=== PATIENT | male | born 1995 | race Caucasian/White ===

== ENCOUNTER 2020-04-09 22:07 | Emergency (ER) | payer MEDICAID, SELFPAY ==
[2020-04-09 22:12] VITALS: BP 104/63; PULSE 97; RESP 16; TEMP 37.3; O2SAT 100; BMI 22.6
--- NOTE | 2020-04-09 22:35 | W.ED.SKABFB ---
HPI - Skin/Abscess/Foreign Bdy General: Chief complaint: General Medical Stated complaint: painful lumps in face and head Time Seen by Provider: 04/09/20 22:23 Source: patient Mode of arrival: ambulatory Limitations: no limitations History of Present Illness: HPI narrative: Patient is a 24-year-old male who presents to ED today with complaints of skin lesions to his chin that he noticed approximately 2 weeks ago. Patient states since then he has noticed a couple of lumps underneath his right chin and left neck. Patient denies history of staph or MRSA. He has not noticed any drainage from the lesions. No fever/chills/body aches. No other systemic symptoms. Normally shaves face but states he has not recently because of the lesions. MD complaint: lesion Onset (ago): week(s) Tetanus up to date: yes Location: face Severity: mild Relieving factors: none Exacerbating factors: none Context: none Associated symptoms: Reports no associated symptoms; Deny chills, fever(s), nausea or vomiting Treatments prior to arrival: none Review of Systems Const: Denies: fever(s), chills, body aches, change in appetite, change in weight, fatigue or malaise ENMT: Reports: other (denies dysphagia ); Denies: throat pain, enlarged tonsils, odynophagia or oral sores GI: Denies: nausea, vomiting or dysphagia Musc: Denies: neck pain, back pain, extremity pain, extremity swelling, joint pain or joint swelling Skin/Breast: Reports: sores (chin) Neuro: Denies: headache(s), numbness in extremities, weakness in extremities or sensory changes PFS ED PFSH: Social History Smoking and tobacco status: current every day smoker Physical Exam Const: COMMON NORMALS: no acute distress, average body habitus, patient oriented x3, no limitations, healthy appearing, alert and well nourished Neck/C-Spine: COMMON NORMALS: full ROM and no meningeal signs Lymph: OTHER: pt has submental, right sided submandibular, and one left superficial cervical lymph node swelling present Neuro: COMMON NORMALS: patient oriented x3 SENSORIUM/ORIENTATION: Yes alert MENINGEAL SIGNS: Yes no meningeal signs Skin: OTHER: pt has two scabbed areas approximately 3-4 mm to chin with crusting and surrounding erythema Course Vital Signs: Vital signs: Vital Signs Temperature 99.1 F 04/09/20 22:12 Pulse Rate 97 04/09/20 22:12 Respiratory Rate 16 04/09/20 22:12 Blood Pressure 104/63 04/09/20 22:12 Pulse Oximetry 100 04/09/20 22:12 MDM - Skin/Abscess/Foreign Bdy MDM Narrative: Medical decision making narrative: pt with probable staph to chin with reactive lymphadenopathy; will place on oral bactrim and give mupirocin ointment; he needs to seek re-evaluation if lesions/lymph nodes do not improve despite therapy Discharge Plan Discharge Patient Disposition: Home, Self-Care Clinical Impression: Staph skin infection, Reactive lymphadenopathy Condition: Stable Prescriptions: New mupirocin 2 % ointment 1 applic TOPICAL BID Qty: 15 RF: 0 Bactrim DS 800-160 mg tablet 1 tab PO BID 7 Days Qty: 14 RF: 0 Discharge Orders: Discharge Order (Routine); Ordered 04/09/20 Ordered By: Seda Luciano Patient Instructions: Lymphadenopathy (ED), Staphylococcus Aureus Infection Activity Restrictions/Additional Instructions: Avoid picking. Avoid shaving until all lesions cleared (use new razor). May use warm compresses to help facilitate drainage. Seek re-evaluation if area continues to worsen or fails to improve after antibiotics. Coding Level of Care Code ED One Piece Expansion Maker Hand for Elizabeth Fwsawyer Exam Expanded Problem Focused
== END 2020-04-09 22:59 | disposition home or self-care (01) ==
LOC: ER 22:42
PROVIDERS: Emergency Provider Physician Assistant
DX: L08.89 Other specified local infections of the skin and subcutaneous tissue (principal); R59.1 Generalized enlarged lymph nodes; F17.210 Nicotine dependence, cigarettes, uncomplicated
CPT/HCPCS: 12345; 99281; 99282

== ENCOUNTER 2020-05-07 16:02 | Emergency (ER) | payer MEDICAID, SELFPAY ==
[2020-05-07 16:12] VITALS: BP 148/80; PULSE 87; RESP 16; TEMP 36.9; O2SAT 100; BMI 21.9
--- NOTE | 2020-05-07 18:10 | CTR_ITS ---
PROCEDURE INFORMATION: Exam: CT Head Without Contrast Exam date and time: 05/07/2020 7:05 PM Age: 24 years old Clinical indication: Pain; Headache; Additional info: Intractable headache TECHNIQUE: Imaging protocol: Computed tomography of the head without contrast. Radiation optimization: All CT scans at this facility use at least one of these dose optimization techniques: automated exposure control; mA and/or kV adjustment per patient size (includes targeted exams where dose is matched to clinical indication); or iterative reconstruction. COMPARISON: CT head wo con* [id number] 05/20/2016 10:02 AM RADIATION DOSE METRICS: Total DLP (mGy-cm): 807.31 FINDINGS: Brain: No visible evidence of active or acute intracranial pathologic process, trauma, or hemorrhage. Normal apodaca-white differentiation. No visible evidence of focal or generalized edema or demyelination. Ventricles: Normal. No ventriculomegaly. Bones/joints: Unremarkable. No acute fracture. Sinuses: Visualized sinuses are unremarkable. No fluid levels. Mastoid air cells: Visualized mastoid air cells are well aerated. Soft tissues: Small 1 cm subcutaneous nodule left occiput soft tissues potential small soft tissue fibroma or complex sebaceous cyst. CT/CT head wo con* [id number] IMPRESSION: No visible evidence of active or acute intracranial pathologic process. Radiation Dose CTDIVOL = (mGy): DLP = 807.31 (mGy-cm)
[2020-05-07 18:44] LABS: Basophils # 0.1 10^3/uL (0.0-0.1); Basophils % 0.7 %; Eosinophils # 0.2 10^3/uL (0.0-0.8); Eosinophils % 2.7 %; Hematocrit 40.3 % (42.0-52.0); Lymphocytes # 1.8 10^3/uL (0.8-4.8); Lymphocytes % 25.3 %; Mean Corpuscular HGB Conc 32.3 g/dL (30.0-36.0); Mean Corpuscular Volume 89.8 fL (80-94); Mean Platelet Volume 8.9 fL (7.4-10.4); Monocytes % 13.6 %; Neutrophils # 4.03 10^3/uL (1.8-7.7); Neutrophils % 57.3 %; Nucleated Red Blood Cells % 0 %; Platelet Count 333 10^3/cmm (130-400); Red Blood Count 4.49 10^6/uL (4.1-5.3); Red Cell Distribution Width 12.1 % (12.1-15.1)
[2020-05-07 18:54] LABS: INR 0.99 (0.8-1.2)
[2020-05-07 19:00] LABS: Alanine Aminotransferase 40 U/L (0-41); Albumin Level 3.9 g/dL (3.5-5.2); Alkaline Phosphatase 244 IU/L (40-130); Anion Gap 13.6 (5-19); Aspartate Amino Transferase 19 U/L (0-40); Blood Urea Nitrogen 10 mg/dL (6-20); Calcium 9.2 mg/dL (8.5-10.5); Carbon Dioxide 28 mmol/L (22-29); Chloride 99 mmol/L (98-107); Globulin 3.7 g/dL (1.3-4.6); Glomerular Filtration Rate 136.3 mL/min (90-130); Glucose 77 mg/dL (65-115); Osmolality Calculated 279 mOsm/kg (285-295); Potassium 3.6 mmol/L (3.5-5.1); Sodium 137 mmol/L (136-145); Total Bilirubin 0.3 mg/dL (0.15-1.2); Total Protein 7.6 g/dL (6.6-8.7)
[2020-05-07] MEDS: diphenhydrAMINE 50 mg/mL SDV 1mL 25 MG IVP (19:07)
[2020-05-07] MEDS: metoclopramide 5 mg/mL SDV 2 mL 10 MG IVP (19:08)
--- NOTE | 2020-05-07 19:34 | ED_ITS ---
HPI - Headache General: Chief Complaint: Headache Stated Complaint: sent by dotor/possible brain bleed Time Seen by Provider: 05/07/20 18:07 Source: patient Mode of arrival: ambulatory Limitations: no limitations History of Present Illness: HPI Narrative: Mr. Grullon is a nice 24-year-old male who comes in complaining of right-sided headache. He describes the pain as throbbing in nature. The pain began 3 weeks ago and is constant. He states he woke up with a headache and it has not intensified over the past 3 weeks. He denies any photophobia, phonophobia, nausea or vomiting, fevers or chills, neck pain or stiffness, or any other neurologic complaints. Patient denies any other issues but after he had had this headache for the past 3 weeks he was asked to come to the ER by Dr. Pyle for a CT of the head. Patient denies any other complaints or concerns. Associated symptoms: Deny chest pain, confusion, diaphoresis, fever(s), lightheadedness, malaise, nausea, pre-syncope, rash, syncope or vomiting Review of Systems Const: Denies: fever(s), chills, body aches, fatigue, malaise or diaphoresis Eyes: Denies: change in vision, blurry vision, blind spots, photophobia, eye discharge or eye redness ENMT: Denies: throat pain, odynophagia, hoarseness, swelling of lips/tongue, oral sores, ear or mastoid pain, ear discharge, change in hearing or nasal discharge Card: Denies: chest pain, palpitations, irregular heart rhythm, edema, lightheadedness, syncope, pre-syncope, dyspnea on exertion or orthopnea Resp: Denies: dyspnea, productive cough, non-productive cough, wheezing, hemoptysis or chest congestion GI: Denies: abdominal pain, nausea, vomiting, hematemesis, coffee ground emesis, heartburn, diarrhea, constipation, GI cramping, hematochezia or melena : Denies: flank pain, dysuria, urinary frequency, urinary urgency or hematuria Musc: Denies: neck pain, back pain, extremity pain, extremity swelling, joint pain, joint swelling, joint redness, joint warmth or joint stiffness Skin/Breast: Denies: rash, pruritus, erythema, skin tenderness or jaundice Neuro: Reports: headache(s); Denies: numbness in extremities, weakness in extremities, sensory changes, lack of coordination, difficulty walking, dizziness, vertigo, confusion, Slurred speech present or seizure-like activity Juan/Lymph: Denies: easy bruising, easy bleeding, petechiae, purpura or enlarged lymph nodes All/Imm: Denies: urticaria, throat swelling, tongue swelling, facial swelling or acute wheezing PFSH ED PFSH: Medical History (Updated 05/07/20 @ 21:17 by Veronica Alfaro) No pertinent past medical history Surgical History (Updated 05/07/20 @ 19:40 by Veronica Alfaro) No pertinent past surgical history Social History Smoking and tobacco status: current every day smoker Physical Exam Const: COMMON NORMALS: no acute distress, patient oriented x3, no limitations, healthy appearing and well nourished GENERAL APPEARANCE: cooperative, well kempt and well developed HENMT: COMMON NORMALS: normocephalic, atraumatic, external ears normal, EAC's normal and Normal external nose present HEAD & SCALP: normal to inspection, normocephalic and atraumatic FACE & SINUS: normal facial exam and face symmetric NOSE: Normal external nose present and Normal nares present EXTERNAL EAR: Yes external ears normal EXTERNAL AUDITORY CANAL: EAC's normal MOUTH: Normal oral and palatal mucosa present, lip normal and tongue normal Eye: COMMON NORMALS: Equal, round and reactive pupils present and conjunctivae normal GENERAL EYE: appearance normal, both eyes and all related structures ALIGNMENT: Yes alignment normal PERIORBITAL: periorbital findings normal EYELID: eyelids normal CONJUNCTIVA: Yes conjunctivae normal SCLERA: sclerae normal PUPIL: Yes Equal, round and reactive pupils present Neck/C-Spine: COMMON NORMALS: full ROM, no lymphadenopathy, supple, no meningeal signs and no JVD GENERAL: Yes normal visual inspection and Yes trachea midline Chest: COMMONS NORMALS: normal inspection of the chest and normal palpation of entire chest wall Resp: COMMON NORMALS: normal respiratory effort, No retractions and No use of accessory muscles EFFORT & INSPECTION: Yes able to speak in complete sentences and Yes symmetric chest movement AUSCULTATION: no crackles, no rales, no rhonchi and no wheezes Cardio: COMMON NORMALS: no JVD, regular rate, regular rhythm, S1 normal heart sound present and S2 normal heart sound present RATE: regular rate RHYTHM: regular rhythm HEART SOUNDS: S1 normal heart sound present, S2 normal heart sound present, no click, no gallops, no murmurs, no rubs and abnormal split S2 GI: COMMON NORMALS: Soft to palpation and No hepatosplenomegaly present PALPATION: Yes Soft to palpation, No Tenderness to palpation present (GI), No Guarding due to palpation present (GI), No Rigid due to palpation, Yes No hepatosplenomegaly present, No Hernia present, No Palpable mass present and No Pulsatile mass present : COMMON NORMALS: Yes no CVA tenderness BLADDER/KIDNEY EXAM: Yes no CVA tenderness Back/Pelvis: COMMON NORMALS: no CVA tenderness, thoracic and lumbar spine normal to inspection, no thoracic nor lumbar tenderness and thoraco-lumbar ROM normal Extremity: COMMON NORMALS: normal to inspection, full ROM, capillary refill normal, no joint enlargement, no clubbing, cyanosis or edema and no calf tenderness Neuro: COMMON NORMALS: patient oriented x3, CN's II-XII intact bilaterally, moves all extremities, no focal motor deficits and no sensory deficits noted MENINGEAL SIGNS: Yes no meningeal signs SPEECH: speech normal Psych: COMMON NORMALS: mental status grossly normal, Normal thought process present, cooperative, normal affect, speech normal and activity/motor behavior normal APPEARANCE: Yes well kempt SPEECH: Yes normal speech THOUGHT PROCESS: Normal thought process present Skin: COMMON NORMALS: no rashes or lesions noted, turgor normal, no jaundice, no petechiae and no mottling GENERAL SKIN EXAM: no rashes or lesions noted and turgor normal Course Vital Signs: Vital signs: Vital Signs Temperature 97.9 F 05/07/20 21:32 Pulse Rate 72 05/07/20 21:32 Respiratory Rate 16 05/07/20 21:32 Blood Pressure 108/76 05/07/20 21:32 Pulse Oximetry 98 05/07/20 20:16 MDM - Headache MDM Narrative: Medical decision making narrative: Mr. Grullon is a 24-year-old male who comes in with an intractable headache for 3 weeks. He has had no fever, no neck pain or stiffness, he has no other complaints. On exam he had no temporal artery nodularity and he had no visual symptoms. I did review the case in full with Dr. Light who states the patient is the wrong age and knows he does have bad teeth that she thinks is elevated sed rate is likely secondary to this. I did recommend and offered to do a spinal tap to definitively rule out meningitis or some type of strange vasculitis but the patient adamantly refused. He had complete and total pain relief with the medications given him here for a migraine cocktail although his headache did not sound entirely like a migraine. I could not get a hold of Dr. Pyle but I will have case management arrange follow-up for soon as possible Dr. Pyle can decide if he would like the patient to have a temporal artery biopsy or pursue the work-up further. Dr. Light again did not think the patient was the right age but I will cover the patient temporarily and Dr. Pyle can decide if he wants the patient to be worked up definitively. The patient did have overall poor dentition but this was diffusely. There is no sign of dental abscess and the sinuses were clear on CT. Lab Data: Attestation: I reviewed the patient's lab results. Labs: Lab Results 05/07/20 05/07/20 05/07/20 Range/Units 18:17 18:17 18:17 WBC 7.0 (4.0-10.0) 10^3/ uL RBC 4.49 (4.1-5.3) 10^6/u L Hgb 13.0 (11.7-16.6) g/dL Hct 40.3 L (42.0-52.0) % MCV 89.8 (80-94) fL MCH 29.0 (28.0-34.0) pg MCHC 32.3 (30.0-36.0) g/dL RDW 12.1 (12.1-15.1) % Plt Count 333 (130-400) 10^3/c mm MPV 8.9 (7.4-10.4) fL Neut % (Auto) 57.3 % Lymph % (Auto) 25.3 % [place] % (Auto) 13.6 % Eos % (Auto) 2.7 % Baso % (Auto) 0.7 % Neut # (Auto) 4.03 (1.8-7.7) 10^3/u L Lymph # (Auto) 1.8 (0.8-4.8) 10^3/u L [place] # (Auto) 1.0 H (0.2-0.9) 10^3/u L Eos # (Auto) 0.2 (0.0-0.8) 10^3/u L Baso # (Auto) 0.1 (0.0-0.1) 10^3/u L Nucleated RBC % (a uto) 0 % Nucleated RBCs # 0.0 /100WBC ESR (0-10) mm/hr PT 13.40 H (10.5-13.3) SECO NDS INR 0.99 (0.8-1.2) Sodium 137 (136-145) mmol/L Potassium 3.6 (3.5-5.1) mmol/L Chloride 99 (98-107) mmol/L Carbon Dioxide 28 (22-29) mmol/L Anion Gap 13.6 (5-19) BUN 10 (6-20) mg/dL Creatinine 0.7 (0.7-1.2) mg/dL GFR Calculation 136.3 H (90-130) mL/min Glucose 77 (65-115) mg/dL Calculated Osmolal ity 279 L (285-295) mOsm/k g Calcium 9.2 (8.5-10.5) mg/dL Total Bilirubin 0.3 (0.15-1.2) mg/dL AST 19 (0-40) U/L ALT 40 (0-41) U/L Alkaline Phosphata se 244 H (40-130) IU/L Total Protein 7.6 (6.6-8.7) g/dL Albumin 3.9 (3.5-5.2) g/dL Globulin 3.7 (1.3-4.6) g/dL 05/07/20 Range/Units 18:17 WBC (4.0-10.0) 10^3/ uL RBC (4.1-5.3) 10^6/u L Hgb (11.7-16.6) g/dL Hct (42.0-52.0) % MCV (80-94) fL MCH (28.0-34.0) pg MCHC (30.0-36.0) g/dL RDW (12.1-15.1) % Plt Count (130-400) 10^3/c mm MPV (7.4-10.4) fL Neut % (Auto) % Lymph % (Auto) % [place] % (Auto) % Eos % (Auto) % Baso % (Auto) % Neut # (Auto) (1.8-7.7) 10^3/u L Lymph # (Auto) (0.8-4.8) 10^3/u L [place] # (Auto) (0.2-0.9) 10^3/u L Eos # (Auto) (0.0-0.8) 10^3/u L Baso # (Auto) (0.0-0.1) 10^3/u L Nucleated RBC % (a uto) % Nucleated RBCs # /100WBC ESR 89 H (0-10) mm/hr PT (10.5-13.3) SECO NDS INR (0.8-1.2) Sodium (136-145) mmol/L Potassium (3.5-5.1) mmol/L Chloride (98-107) mmol/L Carbon Dioxide (22-29) mmol/L Anion Gap (5-19) BUN (6-20) mg/dL Creatinine (0.7-1.2) mg/dL GFR Calculation (90-130) mL/min Glucose (65-115) mg/dL Calculated Osmolal ity (285-295) mOsm/k g Calcium (8.5-10.5) mg/dL Total Bilirubin (0.15-1.2) mg/dL AST (0-40) U/L ALT (0-41) U/L Alkaline Phosphata se (40-130) IU/L Total Protein (6.6-8.7) g/dL Albumin (3.5-5.2) g/dL Globulin (1.3-4.6) g/dL Imaging Data^: CT Head: Radiologist's impression: [address] [address] [address] Scan Report Signed Patient: Earline Grullon Unit #: [id number] : 1995 Age/Sex: 24 / M ADM Date: 05/07/20 Loc: ER Room/Bed: Attending Dr: Ordering Provider/Ordering MD: Veronica Alfaro DO Date of Service: 05/07/20 Procedure(s): CT head wo con* [id number] Accession Number(s): [id number] Report Number: [id number] PROCEDURE INFORMATION: Exam: CT Head Without Contrast Exam date and time: 05/07/2020 7:05 PM Age: 24 years old Clinical indication: Pain; Headache; Additional info: Intractable headache TECHNIQUE: Imaging protocol: Computed tomography of the head without contrast. Radiation optimization: All CT scans at this facility use at least one of these dose optimization techniques: automated exposure control; mA and/or kV adjustment per patient size (includes targeted exams where dose is matched to clinical indication); or iterative reconstruction. COMPARISON: CT head wo con* [id number] 05/20/2016 10:02 AM RADIATION DOSE METRICS: Total DLP (mGy-cm): 807.31 FINDINGS: Brain: No visible evidence of active or acute intracranial pathologic process, trauma, or hemorrhage. Normal apodaca-white differentiation. No visible evidence of focal or generalized edema or demyelination. Ventricles: Normal. No ventriculomegaly. Bones/joints: Unremarkable. No acute fracture. Sinuses: Visualized sinuses are unremarkable. No fluid levels. Mastoid air cells: Visualized mastoid air cells are well aerated. Soft tissues: Small 1 cm subcutaneous nodule left occiput soft tissues potential small soft tissue fibroma or complex sebaceous cyst. CT/CT head wo con* [id number] IMPRESSION: No visible evidence of active or acute intracranial pathologic process. Radiation Dose CTDIVOL = (mGy): DLP = 807.31 (mGy-cm) Dictated By: Evan Abreu Signed By: Evan Abreu Signed Date/Time: 05/07/201932 DD/ 31 Discharge Plan Discharge Patient Disposition: Home, Self-Care Clinical Impression: Headache Qualifiers: Headache type: unspecified Headache chronicity pattern: chronic headache Intractability: not intractable Qualified Code(s): R51 - Headache Condition: Stable Prescriptions: New prednisone 10 mg tablet 20 mg PO TID 5 Days Qty: 30 RF: 0 Zofran 4 mg tablet 4 mg PO Q6H PRN (Reason: nausea and vomiting) Qty: 20 RF: 0 Augmentin 875-125 mg tablet 1 tab PO BID 10 Days Qty: 20 RF: 0 Discharge Orders: Discharge Order (Routine); Ordered 05/07/20 Ordered By: Veronica Alfaro Referrals: Gilbert Pyle MD [Hospitalist] - 1-3 days (Be certain to follow-up with Dr. Cruz as soon as possible to see if he would like you to undergo further steroid therapy or work-up for your elevated sedimentation rate.) Discharge Diet: Usual diet Discharge Activity: Increase activity as tolerated Patient Instructions: Acute Headache (ED) Activity Restrictions/Additional Instructions: Please return to the ER immediately for any of the signs or symptoms listed on your discharge instruction sheets, worsening/changing of your symptoms, you are not getting better as quickly as expected, or for ANY other cause or concerns. A definitive cause of your headache has not been determined. You need further testing including evaluation for possible giant cell/temporal arteriolitis. Take the steroids as I have directed and be certain to get a hold of Dr. Stein to see if he would like you to continue this. Take the antibiotics as I have prescribed. Return to the ER if your headache returns, you began to vomit or you have any other concerns. Discharge Date/Time: 05/07/20 21:34 Coding Level of Care Code ED Etymology Professor for Chg Fwd Exam Comprehensive
[2020-05-07] MEDS: sodium chloride 0.9% 1,000 ML 999 ML IV (19:42)
[2020-05-07 20:16] VITALS: BP 106/58; PULSE 72; RESP 16; O2SAT 98
[2020-05-07 20:59] LABS: Erythrocyte Sedimentation Rate 89 mm/hr (0-10)
[2020-05-07] MEDS: predniSONE 20 mg Tablet 60 MG PO (21:27)
[2020-05-07] MEDS: amoxicillin-clav 875-125 mg Tablet 1 TAB PO (21:27)
[2020-05-07 21:32] VITALS: BP 108/76; PULSE 72; RESP 16; TEMP 36.6
--- NOTE | 2020-05-11 11:56 | DCPLANNER ---
Dr. Alfaro asked [employer] to check if patient has a follow up appointment for patient with primary care. ecommerce merchandising manager called patient, asked if [employer] could schedule a follow up appointment for patient with [employer], Manisha Oquendo. Patient stated that would be fine, [employer] called the office of CL[employer] CAL[employer]ER, Manisha Oquendo, spoke with Amalia, a follow up appointment was scheduled for Tuesday, May 12, 2020 at 9:00 with Manisha, [employer] called patient with appointment information. Patient stated that he would attend the appointment.
--- NOTE | 2020-05-14 12:36 | DCPLANNER ---
Patient did not attend follow up appointment with Manisha Oquendo.
== END 2020-05-07 21:34 | disposition home or self-care (01) ==
PROVIDERS: Nurse Practitioner Family; Emergency Provider Emergency Medicine
DX: R51 Headache (principal); F17.210 Nicotine dependence, cigarettes, uncomplicated
CPT/HCPCS: 12345; 70450; 80053; 85025; 85610; 85651; 86140; 96361; 96374; 96375; 99282; 99283; J0131; J1200; J2765; J7030; J7512

== ENCOUNTER → 2021-05-27 09:51 | Outpatient (BNVA) | payer BC, SELFPAY | PROVIDERS: Visit Provider Nurse Practitioner Family | DX: Z20.822 Contact with and (suspected) exposure to COVID-19 (principal) | CPT/HCPCS: 87635 ==

== ENCOUNTER 2021-08-12 08:41 | Emergency (ER) | payer BC, MEDICAID, SELFPAY ==
[2021-08-12 08:46] VITALS: BP 125/75; PULSE 100; RESP 15; TEMP 36.7; O2SAT 100; BMI 24.2
--- NOTE | 2021-08-12 08:46 | W.ED.UPPEXIN ---
HPI - Extremity Injury (Upper) General: Chief Complaint: Extremity Injury, Upper Stated Complaint: Injury to Left Hand/Fingers Time Seen by Provider: 08/12/21 08:45 History of Present Illness: HPI narrative: Mr. Grullon is a 25-year-old gentleman without significant past medical history presents emergency department due to hand injury. He reports that he was leaving his house when his dog jumped behind him on the door slamming his left hand in the door. Immediately had pain which he describes as throbbing. Moderate to severe in intensity. Worse with movement. He additionally endorses mild subjective numbness in the fifth digit. Otherwise denies changes in health. No other specific injuries, exacerbating, or relieving factors identified. Review of Systems Narrative: CONSTITUTIONAL: denies fever CARDIOVASCULAR - denies chest pain RESPIRATORY - denies shortness of breath MUSCULOSKELETAL- see hpi SKIN - denies rashes or new changed skin lesions NEUROLOGIC - se hpi [facility] ED PFSH: Medical History (Updated 08/12/21 @ 09:19 by José Miguel Buck MD) No pertinent past medical history Surgical History No pertinent past surgical history Social History Smoking and tobacco status: current every day smoker Alcohol intake: never Physical Exam Narrative: EXAM NARRATIVE: GENERAL/CONSTITUTIONAL - well-appearing. uncomfortable due to pain CARDIOVASCULAR - regular rate and rhythm. Peripheral pulses 2+ and equal RESPIRATORY -clear to auscultation bilaterally. MSK - left hand: Fingers held in neutral position, pain limits range of motion. SKIN - Warm, Dry Course ED course: - Patient was seen and evaluated by me at bedside -Vital signs obtained - Initial evaluation notable for exam as noted above, hand pain with limited range of motion secondary to pain, no lacerations or abrasions identified. - Labs and imaging obtained and reviewed -Analgesia given - Imaging notable for no fracture - Upon serial reexamination after treatment the patient was mildly improved - Based on patient history, evaluation, labs, and imaging as interpreted the most likely cause of the patient's condition is hand injury/contusion - The results of ED evaluation were given to the patient including prescriptions and/or symptomatic cares (if applicable) including appropriate and responsible use, followup plan, and return precautions. The patient verbalized understanding and felt safe for discharge. - Patient discharged in satisfactory condition. Vital Signs: Vital signs: Vital Signs Temperature 98.1 F 08/12/21 08:46 Pulse Rate 100 08/12/21 08:56 Respiratory Rate 18 08/12/21 08:56 Blood Pressure 125/75 08/12/21 08:56 Pulse Oximetry 100 08/12/21 08:56 MDM - Extremity Injury (Upper) Medical Records: Attestation: I reviewed the patient's medical records. Lab Data: Attestation: I reviewed the patient's lab results. Discharge Plan Discharge Patient Disposition: Home Clinical Impression: Hand injury, Contusion Condition: Stable Prescriptions: No Action No Known Home Medications RF: 0 Discharge Orders: Discharge ED (Routine); Ordered 08/12/21 Ordered By: José Miguel Buck Discharge Diet: Usual diet Discharge Activity: Resume usual activity Patient Instructions: Contusion in Adults (ED) Activity Restrictions/Additional Instructions: Thank you for visiting the emergency department. You were seen and evaluated for hand injury. No fractures were identified. You likely just have significant bruising. You may use [id number] medications such as Tylenol or ibuprofen for your symptoms, do not exceed the daily recommended dosage and please keep in mind that many namebrand medications contain the same active ingredients. Please follow-up with your primary care provider. Please return the emergency department as needed. Coding Level of Care Code ED Volunteer Services Assistant for Elizabeth Ignacio
--- NOTE | 2021-08-12 08:55 | XR_ITS ---
WS: [id number] Left hand, 3 views, 08/12/2021 Clinical Data: pain, slammed in door Comparison: Left hand, 04/13/2015. Findings: No fractures or dislocations are seen. The soft tissues are unremarkable. The joint spaces are normal XR/XR hand LT min 3V* [id number] Impression: Negative left hand.
[2021-08-12 08:56] VITALS: BP 125/75; PULSE 100; RESP 18; O2SAT 100
[2021-08-12] MEDS: ketorolac 30 mg/mL INJ IM (09:02)
[2021-08-12] MEDS: acetaminophen 500 mg Tablet 1000 MG PO (09:03)
== END 2021-08-12 09:24 | disposition home or self-care (01) ==
PROVIDERS: Emergency Provider Emergency Medicine
DX: F17.210 Nicotine dependence, cigarettes, uncomplicated (principal); S60.229A Contusion of unspecified hand, initial encounter; S69.90XA Unspecified injury of unspecified wrist, hand and finger(s), initial encounter; W23.0XXA Caught, crushed, jammed, or pinched between moving objects, initial encounter
CPT/HCPCS: 73130; 96372; 99283; J1885

== ENCOUNTER → 2021-12-22 12:11 | Outpatient (BNVA) | payer OTHER, SELFPAY | PROVIDERS: Visit Provider Nurse Practitioner Family | DX: Z20.822 Contact with and (suspected) exposure to COVID-19 (principal) | CPT/HCPCS: 87635 ==

== ENCOUNTER 2022-04-10 15:16 | Emergency (ER) | payer BC, MEDICAID, SELFPAY ==
--- NOTE | 2022-04-10 15:19 | XRR_ITS ---
PROCEDURE INFORMATION: Exam: XR Left Shoulder Exam date and time: 04/10/2022 3:27 PM Age: 26 years old Clinical indication: Pain; Shoulder; Left TECHNIQUE: Imaging protocol: Radiologic exam of the Left shoulder. Views: 2 or more views. COMPARISON: No relevant prior studies available. FINDINGS: Bones/joints: Negative for acute bony abnormality Soft tissues: Normal. XR/XR shoulder LT min 2V* [id number] IMPRESSION: No acute findings.
[2022-04-10 16:04] VITALS: BP 107/73; PULSE 125; RESP 20; TEMP 37.2; O2SAT 98; BMI 24.2
--- NOTE | 2022-04-10 16:13 | ED_ITS ---
HPI - Extremity Problem General: Chief complaint: Extremity Injury, Upper Stated complaint: Left shoulder injury Time Seen by Provider: 04/10/22 16:09 Source: patient Mode of arrival: ambulatory Limitations: no limitations History of Present Illness: 18-year-old male states that a few hours ago he was helping his father stepped on the window of his truck and fell off the truck. He states he landed on the ground straight onto his left shoulder he has had with left shoulder pain since the fall. States it mainly hurts when he moves it is improved with rest. He denies any other injuries besides the shoulder denies hitting his head denies neck pain rates his pain a 6 out of 10 currently. Associated symptoms: Deny chest pain, fever(s) or rash Review of Systems Const: Denies: fever(s), chills, body aches or change in appetite Eyes: Denies: blurry vision or eye discomfort ENMT: Denies: throat pain or dental pain Card: Denies: chest pain Resp: Denies: dyspnea GI: Denies: abdominal pain, nausea, vomiting or diarrhea : Denies: dysuria Musc: Reports: extremity pain and joint pain Skin/Breast: Denies: rash Neuro: Denies: headache(s) Psych: Denies: depression Juan/Lymph: Denies: easy bruising All/Imm: Denies: urticaria PFSH ED PFSH: Medical History (Updated 04/10/22 @ 16:16 by Yaneli Carson MD) No pertinent past medical history Surgical History No pertinent past surgical history Social History Smoking and tobacco status: current every day smoker Alcohol intake: never Physical Exam Const: COMMON NORMALS: no acute distress, patient oriented x3 and healthy appearing HENMT: COMMON NORMALS: normocephalic and atraumatic HEAD & SCALP: normocephalic and atraumatic Eye: COMMON NORMALS: Equal, round and reactive pupils present and EOMs intact bilaterally PUPIL: Yes Equal, round and reactive pupils present Neck/C-Spine: COMMON NORMALS: full ROM and supple Chest: COMMONS NORMALS: normal inspection of the chest and normal palpation of entire chest wall Resp: COMMON NORMALS: normal respiratory effort, No retractions, No use of accessory muscles and clear to auscultation bilaterally AUSCULTATION: clear to auscultation bilaterally Cardio: COMMON NORMALS: regular rate, regular rhythm and No murmurs present (Cardio) RATE: regular rate RHYTHM: regular rhythm GI: COMMON NORMALS: Normal to inspection, nondistended, normoactive bowel sounds present, Soft to palpation, non-tender and no masses PALPATION: Yes Soft to palpation Extremity: COMMON NORMALS: full ROM NARRATIVE EXTREMITY EXAM: Tenderness to left shoulder on palpation no obvious deformity distal pulses sensation intact does have full range of motion but does have pain with range of motion Neuro: COMMON NORMALS: patient oriented x3, moves all extremities and no focal motor deficits Psych: COMMON NORMALS: mental status grossly normal, Normal thought process present and cooperative THOUGHT PROCESS: Normal thought process present Skin: COMMON NORMALS: no rashes or lesions noted and no wounds GENERAL SKIN EXAM: no rashes or lesions noted Course Vital Signs: Vital signs: Vital Signs Temperature 99.0 F 04/10/22 16:04 Pulse Rate 125 H 04/10/22 16:04 Respiratory Rate 20 H 04/10/22 16:04 Blood Pressure 107/73 04/10/22 16:04 Pulse Oximetry 98 04/10/22 16:04 MDM - Extremity (Nontraumatic) Medical Decision Making Patient presents here with shoulder pain likely a sprain x-ray shows no fracture we will mobilize him in a sling him follow-up with orthopedics prescribe him Naprosyn for home. Discharge Plan Discharge Patient Disposition: Home Clinical Impression: Sprain of left shoulder Qualifiers: Encounter type: initial encounter Shoulder sprain type: unspecified sprain Qualified Code(s): S43.402A - Unspecified sprain of left shoulder joint, initial encounter Condition: Stable Prescriptions: New Naprosyn 500 mg tablet 500 mg PO BID PRN (Reason: pain) Qty: 20 0RF Discharge Orders: Discharge ED (Routine); Ordered 04/10/22 Ordered By: Yaneli Carson Referrals: Gladys Acevedo MD [Physician] - 1-3 days Discharge Diet: Advance as tolerated Discharge Activity: Limit activity as instructed Patient Instructions: Shoulder Sprain (ED), Shoulder Immobilizer (ED) Coding Level of Care Code ED Tooth Cutter Spur for Chg Fwd Exam Comprehensive
[2022-04-10] MEDS: HYDROcodone-acetaminophen 5-325 mg Tablet 1 TAB PO (16:19)
[2022-04-10 16:30] VITALS: BP 107/73; PULSE 120; RESP 18; O2SAT 98
--- NOTE | 2022-04-11 04:56 | DCPLANNER ---
Addendum entered by Margot Campos 05/15/22 15:48: Patient had a follow up appointment scheduled for 04.12.22 with Yaakov Monahan at ortho - patient did not attend appointment. Original Note: manager eligibility had message to schedule a follow up appointment for patient with ortho. manager eligibility sent patients information to the front office staff at ortho. Patients information will be printed and reviewed. Clinic will call patient with appointment information.
== END 2022-04-10 16:32 | disposition home or self-care (01) ==
PROVIDERS: Emergency Provider Emergency Medicine
DX: S43.402A Unspecified sprain of left shoulder joint, initial encounter (principal); W17.89XA Other fall from one level to another, initial encounter
CPT/HCPCS: 73030; 99283

== ENCOUNTER 2023-04-12 01:33 | Emergency (ER) | payer BC, MEDICAID, SELFPAY ==
[2023-04-12 01:37] VITALS: BMI 17.4
[2023-04-12 01:39] VITALS: BP 156/96; PULSE 100; RESP 16; TEMP 36.5; O2SAT 95
--- NOTE | 2023-04-12 01:46 | W.ED.ABDPA2 ---
Documented by User: VALENTINO Frost 04/12/23 02:51 HPI - Abdominal Pain General: Chief Complaint: Abdominal Pain Stated Complaint: ate mushroom/ not feeling well Time Seen by Provider: 04/12/23 01:38 History of Present Illness: 27-year-old male patient comes in today for complaints of ingestion of a magic mushroom and now has a parasite in his stomach. Patient denies the use of other substances. Patient appears paranoid and does not direct to reality. Patient thinks he has a parasite that needs to be expelled from his stomach. Associated Symptoms: Denies constipation, diarrhea, nausea and vomiting Review of Systems General: Reports: 10 or more systems reviewed and unremarkable except in HPI and below Card: Denies: chest pain Resp: Denies: dyspnea GI: Denies: nausea, vomiting, diarrhea or constipation : Denies: difficulty urinating Musc: Denies: neck pain or back pain Skin/Breast: Denies: erythema PFSH ED PFSH: Medical History (Updated 04/12/23 @ 02:40 by VALENTINO Frost) No pertinent past medical history Surgical History No pertinent past surgical history Social History Smoking and tobacco status: current every day smoker Alcohol intake: never Substance/Drug Use: never Physical Exam Const: COMMON NORMALS: alert HENMT: COMMON NORMALS: normocephalic HEAD & SCALP: normocephalic Neck/C-Spine: COMMON NORMALS: full ROM Resp: COMMON NORMALS: normal respiratory effort and clear to auscultation bilaterally AUSCULTATION: clear to auscultation bilaterally Cardio: COMMON NORMALS: regular rate and regular rhythm RATE: regular rate RHYTHM: regular rhythm Back/Pelvis: COMMON NORMALS: thoracic and lumbar spine normal to inspection Extremity: COMMON NORMALS: full ROM Neuro: SENSORIUM/ORIENTATION: Yes alert Psych: COMMON NORMALS: speech normal APPEARANCE: Yes bizarre ATTITUDE: Yes bizarre ACTIVITY/MOTOR BEHAVIOR: Yes fidgeting SPEECH: Yes normal speech MOOD & AFFECT: Yes anxious THOUGHT PROCESS: Circumstantial thought process present THOUGHT CONTENT: No Suicidality present, No Homicidality present and Yes Compulsions present (thought content) ATTENTION/CONCENTRATION: Yes attention grossly impaired INSIGHT: Limited insight present (Psych) JUDGEMENT: Poor judgement present (Psych) Skin: COMMON NORMALS: turgor normal GENERAL SKIN EXAM: turgor normal Course ED course: 199, talked with father he states that he was told that he had taken some mushrooms and 6 hydrocodone's. Discussed we will monitor the patient and allow him to sober up and most likely he will be discharged home. 219, patient desatted to 80% on room air and was placed on oxygen and given 0.4 mg of Narcan. 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 Patient now believes he has a parasite in his stomach and wants help getting expelled. No sign of injury is noted. Patient is just wearing running shorts and socks. When asked where the rest of his close are patient says he just ran here and lost his shoes. Patient was actually brought to the ER by his father. Patient is cooperative and calm but believes we need to help him get the parasite out of his stomach. Vital signs are normal except for some elevation in blood pressure. Heart rates increase at 100. Differential diagnosis includes acute psychosis, substance abuse, acute intoxication. Patient was treated with 2.5 mg of Haldol and 12 and half milligrams of Benadryl for his psychosis. Patient rested and was more cooperative after medications. Patient would sleep and during sleep he would desat into the 70s and 80s on room air. Patient was placed on oxygen and then given 0.4 mg of Narcan. Oxygen saturation came up to 100% on 2 to 3 L of oxygen by nasal cannula. Patient was signed off to Dr. Carson, attending ER physician, at the end of my shift. Lab Data 04/12/23 01:57 04/12/23 01:57 Labs/Radiology: Laboratory Results WBC 9.8 10^3/uL (4.0-10.0) 04/12/23 01:57 RBC 5.17 10^6/uL (4.1-5.3) 04/12/23 01:57 Hgb 15.4 g/dL (11.7-16.6) 04/12/23 01:57 Hct 44.1 % (42.0-52.0) 04/12/23 01:57 MCV 85.3 fl (80-94) 04/12/23 01:57 MCH 29.8 pg (28.0-34.0) 04/12/23 01:57 MCHC 34.9 g/dL (30.0-36.0) 04/12/23 01:57 RDW 12.9 % (12.1-15.1) 04/12/23 01:57 Plt Count 308 10^3/cmm (130-400) 04/12/23 01:57 MPV 8.8 fL (7.4-10.4) 04/12/23 01:57 Neut % (Auto) 40.9 % 04/12/23 01:57 Lymph % (Auto) 47.2 % 04/12/23 01:57 [place] % (Auto) 9.2 % 04/12/23 01:57 Eos % (Auto) 1.8 % 04/12/23 01:57 Baso % (Auto) 0.8 % 04/12/23 01:57 Neut # (Auto) 4.01 10^3/uL (1.8-7.7) 04/12/23 01:57 Lymph # (Auto) 4.6 10^3/uL (0.8-4.8) 04/12/23 01:57 [place] # (Auto) 0.9 10^3/uL (0.2-0.9) 04/12/23 01:57 Eos # (Auto) 0.2 10^3/uL (0.0-0.8) 04/12/23 01:57 Baso # (Auto) 0.1 10^3/uL (0.0-0.1) 04/12/23 01:57 Nucleated RBC % (auto) 0 % 04/12/23 01:57 Nucleated RBCs # 0.0 /100WBC 04/12/23 01:57 Sodium 138 mmol/L (136-145) 04/12/23 01:57 Potassium 3.3 mmol/L (3.5-5.1) L 04/12/23 01:57 Chloride 101 mmol/L (98-107) 04/12/23 01:57 Carbon Dioxide 20 mmol/L (22-29) L 04/12/23 01:57 Anion Gap 20.3 (5-19) H 04/12/23 01:57 BUN 20 mg/dL (6-20) 04/12/23 01:57 Creatinine 1.2 mg/dL (0.7-1.2) 04/12/23 01:57 GFR Calculation 71.6 mL/min (90-130) L 04/12/23 01:57 Glucose 105 mg/dL (65-115) 04/12/23 01:57 Calculated Osmolality 289 mOsm/kg (285-295) 04/12/23 01:57 Calcium 10.0 mg/dL (8.5-10.5) 04/12/23 01:57 Total Bilirubin 1.2 mg/dL (0.15-1.2) 04/12/23 01:57 AST 19 U/L (0-40) 04/12/23 01:57 ALT 18 U/L (0-41) 04/12/23 01:57 Alkaline Phosphatase 84 U/L (40-130) 04/12/23 01:57 Total Protein 7.4 g/dL (6.6-8.7) 04/12/23 01:57 Albumin 4.7 g/dL (3.5-5.2) 04/12/23 01:57 Globulin 2.7 g/dL (1.3-4.6) 04/12/23 01:57 Salicylates < 0.3 mg/dL (3-10) L 04/12/23 01:57 Acetaminophen < 5.0 ug/mL (10-30) L 04/12/23 01:57 Ethyl Alcohol < 10 mg/dL (0-10) 04/12/23 01:57 Discharge Plan Discharge Patient Disposition: Home Clinical Impression: Acute drug intoxication with delirium Condition: Stable Prescriptions: No Action Naprosyn 500 mg tablet 500 mg PO BID PRN (Reason: pain) Qty: 20 0RF Discharge Orders: Discharge ED (Routine); Ordered 04/12/23 Ordered By: Yaneli Carson Discharge Diet: Usual diet Discharge Activity: Increase activity as tolerated Patient Instructions: Polysubstance Use Disorder (ED) Activity Restrictions/Additional Instructions: Home and rest. Drink plenty of water and fluids. Follow-up with primary care for further instructions. Return to ER for new concerns or worsening symptoms. Case management will contact you regarding follow-up with [facility] regarding your mental health issues. Coding Level of Care Code ED Retail Warehouse Supervisor for Chg Fwd Documented by User: Yaneli Carson MD 04/12/23 05:13 HPI - Abdominal Pain General: Chief Complaint: Abdominal Pain Stated Complaint: ate mushroom/ not feeling well Time Seen by Provider: 04/12/23 01:38 PFS ED PFSH: Medical History (Updated 04/12/23 @ 02:40 by VALENTINO Frost) No pertinent past medical history Surgical History No pertinent past surgical history Social History Smoking and tobacco status: current every day smoker Alcohol intake: never Substance/Drug Use: never Course Vital Signs: Vital signs: Vital Signs Temperature 97.7 F 04/12/23 01:39 Pulse Rate 76 04/12/23 05:02 Respiratory Rate 14 04/12/23 05:02 Blood Pressure 135/84 04/12/23 05:02 Pulse Oximetry 100 04/12/23 05:02 Oxygen Delivery Me thod Nasal Cannula 04/12/23 05:02 Oxygen Flow Rate 1.5 04/12/23 05:02 MDM - Abdominal Pain Medical Decision Making 27-year-old male patient comes in intoxicated 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 Patient now believes he has a parasite in his stomach and wants help getting expelled. No sign of injury is noted. Patient is just wearing running shorts and socks. When asked where the rest of his close are patient says he just ran here and lost his shoes. Patient was actually brought to the ER by his father. Patient is cooperative and calm but believes we need to help him get the parasite out of his stomach. Vital signs are normal except for some elevation in blood pressure. Heart rates increase at 100. Differential diagnosis includes acute psychosis, substance abuse, acute intoxication. Patient was treated with 2.5 mg of Haldol and 12 and half milligrams of Benadryl for his psychosis. Patient rested and was more cooperative after medications. Patient would sleep and during sleep he would desat into the 70s and 80s on room air. Patient was placed on oxygen and then given 0.4 mg of Narcan. Oxygen saturation came up to 100% on 2 to 3 L of oxygen by nasal cannula. Patient was signed off to Dr. Carson, attending ER physician, at the end of my shift. Patient presents here after drug ingestion he is quite anxious he is given Ativan he is observed here his blood works normal he is now awake and alert and feels much improved he is stable for discharge with family. Lab Data 04/12/23 01:57 04/12/23 01:57 Labs/Radiology: Laboratory Results WBC 9.8 10^3/uL (4.0-10.0) 04/12/23 01:57 RBC 5.17 10^6/uL (4.1-5.3) 04/12/23 01:57 Hgb 15.4 g/dL (11.7-16.6) 04/12/23 01:57 Hct 44.1 % (42.0-52.0) 04/12/23 01:57 MCV 85.3 fl (80-94) 04/12/23 01:57 MCH 29.8 pg (28.0-34.0) 04/12/23 01:57 MCHC 34.9 g/dL (30.0-36.0) 04/12/23 01:57 RDW 12.9 % (12.1-15.1) 04/12/23 01:57 Plt Count 308 10^3/cmm (130-400) 04/12/23 01:57 MPV 8.8 fL (7.4-10.4) 04/12/23 01:57 Neut % (Auto) 40.9 % 04/12/23 01:57 Lymph % (Auto) 47.2 % 04/12/23 01:57 [place] % (Auto) 9.2 % 04/12/23 01:57 Eos % (Auto) 1.8 % 04/12/23 01:57 Baso % (Auto) 0.8 % 04/12/23 01:57 Neut # (Auto) 4.01 10^3/uL (1.8-7.7) 04/12/23 01:57 Lymph # (Auto) 4.6 10^3/uL (0.8-4.8) 04/12/23 01:57 [place] # (Auto) 0.9 10^3/uL (0.2-0.9) 04/12/23 01:57 Eos # (Auto) 0.2 10^3/uL (0.0-0.8) 04/12/23 01:57 Baso # (Auto) 0.1 10^3/uL (0.0-0.1) 04/12/23 01:57 Nucleated RBC % (auto) 0 % 04/12/23 01:57 Nucleated RBCs # 0.0 /100WBC 04/12/23 01:57 Sodium 138 mmol/L (136-145) 04/12/23 01:57 Potassium 3.3 mmol/L (3.5-5.1) L 04/12/23 01:57 Chloride 101 mmol/L (98-107) 04/12/23 01:57 Carbon Dioxide 20 mmol/L (22-29) L 04/12/23 01:57 Anion Gap 20.3 (5-19) H 04/12/23 01:57 BUN 20 mg/dL (6-20) 04/12/23 01:57 Creatinine 1.2 mg/dL (0.7-1.2) 04/12/23 01:57 GFR Calculation 71.6 mL/min (90-130) L 04/12/23 01:57 Glucose 105 mg/dL (65-115) 04/12/23 01:57 Calculated Osmolality 289 mOsm/kg (285-295) 04/12/23 01:57 Calcium 10.0 mg/dL (8.5-10.5) 04/12/23 01:57 Total Bilirubin 1.2 mg/dL (0.15-1.2) 04/12/23 01:57 AST 19 U/L (0-40) 04/12/23 01:57 ALT 18 U/L (0-41) 04/12/23 01:57 Alkaline Phosphatase 84 U/L (40-130) 04/12/23 01:57 Total Protein 7.4 g/dL (6.6-8.7) 04/12/23 01:57 Albumin 4.7 g/dL (3.5-5.2) 04/12/23 01:57 Globulin 2.7 g/dL (1.3-4.6) 04/12/23 01:57 Salicylates < 0.3 mg/dL (3-10) L 04/12/23 01:57 Acetaminophen < 5.0 ug/mL (10-30) L 04/12/23 01:57 Ethyl Alcohol < 10 mg/dL (0-10) 04/12/23 01:57 Discharge Plan Discharge Patient Disposition: Home Clinical Impression: Acute drug intoxication with delirium Condition: Stable Prescriptions: No Action Naprosyn 500 mg tablet 500 mg PO BID PRN (Reason: pain) Qty: 20 0RF Discharge Orders: Discharge ED (Routine); Ordered 04/12/23 Ordered By: Yaneli Carson Discharge Diet: Usual diet Discharge Activity: Increase activity as tolerated Patient Instructions: Polysubstance Use Disorder (ED) Activity Restrictions/Additional Instructions: Home and rest. Drink plenty of water and fluids. Follow-up with primary care for further instructions. Return to ER for new concerns or worsening symptoms. Case management will contact you regarding follow-up with [facility] regarding your mental health issues. Coding Level of Care Code ED Retail Warehouse Supervisor for Elizabeth Ignacio
[2023-04-12] MEDS: haloperidol inj 5 mg/mL INJ 1 mL 2.5 MG IVP (01:52)
[2023-04-12] MEDS: diphenhydrAMINE 50 mg/mL SDV 1mL 12.5 MG IVP (01:52)
[2023-04-12] MEDS: sodium chloride 0.9% 1,000 ML 999 ML IV (01:52)
[2023-04-12 02:02] LABS: Basophils # 0.1 10^3/uL (0.0-0.1); Basophils % 0.8 %; Eosinophils # 0.2 10^3/uL (0.0-0.8); Eosinophils % 1.8 %; Hematocrit 44.1 % (42.0-52.0); Hemoglobin 15.4 g/dL (11.7-16.6); Lymphocytes # 4.6 10^3/uL (0.8-4.8); Lymphocytes % 47.2 %; Mean Corpuscular HGB Conc 34.9 g/dL (30.0-36.0); Mean Corpuscular Hemoglobin 29.8 pg (28.0-34.0); Mean Corpuscular Volume 85.3 fl (80-94); Mean Platelet Volume 8.8 fL (7.4-10.4); Monocytes # 0.9 10^3/uL (0.2-0.9); Monocytes % 9.2 %; Neutrophils # 4.01 10^3/uL (1.8-7.7); Neutrophils % 40.9 %; Nucleated Red Blood Cells % 0 %; Platelet Count 308 10^3/cmm (130-400); Red Blood Count 5.17 10^6/uL (4.1-5.3); Red Cell Distribution Width 12.9 % (12.1-15.1); White Blood Count 9.8 10^3/uL (4.0-10.0)
[2023-04-12] MEDS: naloxone 0.4 mg/ml SDV IVP (02:22)
[2023-04-12 02:32] LABS: Acetaminophen < 5.0 ug/mL (10-30); Alcohol Level < 10 mg/dL (0-10); Salicylate < 0.3 mg/dL (3-10)
[2023-04-12 02:52] LABS: Alanine Aminotransferase 18 U/L (0-41); Albumin Level 4.7 g/dL (3.5-5.2); Alkaline Phosphatase 84 U/L (40-130); Anion Gap 20.3 (5-19); Aspartate Amino Transferase 19 U/L (0-40); Blood Urea Nitrogen 20 mg/dL (6-20); Carbon Dioxide 20 mmol/L (22-29); Chloride 101 mmol/L (98-107); Globulin 2.7 g/dL (1.3-4.6); Glomerular Filtration Rate 71.6 mL/min (90-130); Glucose 105 mg/dL (65-115); Osmolality Calculated 289 mOsm/kg (285-295); Potassium 3.3 mmol/L (3.5-5.1); Sodium 138 mmol/L (136-145); Total Bilirubin 1.2 mg/dL (0.15-1.2); Total Protein 7.4 g/dL (6.6-8.7)
[2023-04-12 03:46] VITALS: BP 124/83; PULSE 77; RESP 16; O2SAT 100
[2023-04-12 05:02] VITALS: BP 135/84; PULSE 76; RESP 14; O2SAT 100
[2023-04-12 05:11] VITALS: BP 135/84; PULSE 87; RESP 18; O2SAT 100
--- NOTE | 2023-04-12 09:07 | PC.SOCIAL ---
Addendum entered by Margot Campos 04/28/23 13:49: is/it project manager received the following message from Leah at [facility] regarding referral: I called and left [employer] a voicemail with call back number on 04/14/23. Original Note: [facility] referral Referral sent to [facility]; clinic to contact patient with appt date/time.
--- NOTE | 2023-04-15 11:28 | DCPLANNER ---
Patient was called due to no primary care physician - no answer at this time, a voicemail was left.
== END 2023-04-12 05:17 | disposition home or self-care (01) ==
PROVIDERS: Nurse Practitioner Family; Emergency Provider Emergency Medicine
DX: T50.914A Poisoning by multiple unspecified drugs, medicaments and biological substances, undetermined, initial encounter (principal); I15.8 Other secondary hypertension; R41.0 Disorientation, unspecified; F19.90 Other psychoactive substance use, unspecified, uncomplicated; F17.200 Nicotine dependence, unspecified, uncomplicated
CPT/HCPCS: 80053; 80307; 85025; 96374; 96375; 99284; J1200; J1630; J2310; J7030

== ENCOUNTER 2023-08-03 18:55 | Emergency (ER) | payer BC, MEDICAID, SELFPAY ==
--- NOTE | 2023-08-03 19:09 | XRR_ITS ---
PROCEDURE INFORMATION: Exam: XR Left Hand Exam date and time: 08/03/2023 7:18 PM Age: 27 years old Clinical indication: Pain; Hand; Left TECHNIQUE: Imaging protocol: Radiologic exam of the left hand. Views: 3 or more views. COMPARISON: No relevant prior studies available. FINDINGS: Bones/joints: Osseous structures intact. Negative for fracture. Joint spaces are preserved. Soft tissues: Normal. XR/XR hand LT min 3V* [id number] IMPRESSION: No acute findings.
[2023-08-03 19:45] VITALS: RESP 18
[2023-08-03] MEDS: oxyCODONE-APAP 5-325 mg Tablet 1 TAB PO (19:45)
[2023-08-03 19:46] VITALS: BP 126/84; PULSE 96; RESP 18
[2023-08-03] MEDS: lidocaine 2% INJ 20 mL INJECTION (20:30)
--- NOTE | 2023-08-03 21:16 | ED_ITS ---
HPI - Wound/Laceration General: Chief Complaint: Wound/Laceration Stated Complaint: Cut Left Hand Time Seen by Provider: 08/03/23 19:04 History of Present Illness: 27-year-old male presents emergency room with laceration to the left hand from a knife while trying to separate hamburger at home. Patient presents emergency room with throbbing sensation with a severity of 9 out of 10 along the laceration. Denies any numbness or tingling. Denies any ability to move his fi nger both up and down. Associated symptoms: Denies chills or fever(s) Review of Systems General: Reports: 10 or more systems reviewed and unremarkable except in HPI and below Const: Denies: fever(s), chills, body aches, change in appetite, change in weight, fatigue, malaise or night sweats Skin/Breast: Reports: other (Laceration to the palmar aspect of left hand.) [facility] ED PFSH: Medical History (Updated 08/03/23 @ 21:15 by Gwen Cardoza MD) No pertinent past medical history Psychiatric care Surgical History No pertinent past surgical history Social History Smoking and tobacco/nicotine status: current every day tobacco/nicotine user Alcohol intake: never Substance/Drug Use: never Physical Exam Const: COMMON NORMALS: no acute distress, average body habitus, patient oriented x3, no limitations, healthy appearing, alert and well nourished HENMT: COMMON NORMALS: normocephalic, atraumatic, hearing grossly normal bilaterally, external ears normal, EAC's normal, TM's normal bilaterally, Normal external nose present, Normal nasal mucous membranes and turbinates present, moist oral mucous membranes, oropharynx normal, dentition normal and gingiva normal HEAD & SCALP: normocephalic and atraumatic NOSE: Normal external nose present and Normal nasal mucous membranes and turbinates present EXTERNAL EAR: Yes external ears normal EXTERNAL AUDITORY CANAL: EAC's normal TYMPANIC MEMBRANE: TM's normal bilaterally Extremity: LEFT UPPER EXTREMITY: Yes hand & digits (2 cm laceration to the palmar aspect at the base of the left finger.) Left hand and digits: Yes inspection, Yes ROM (Number range of motion of the index finger.), Yes neurovascular exam (Intact sensation. Palpable pulses.) and Yes tendon exam (Normal flexion extension) Neuro: COMMON NORMALS: patient oriented x3 SENSORIUM/ORIENTATION: Yes alert Procedures Laceration Laceration 1: Site: hand Side (If applicable): left Size (cm): 3 Depth: simple, single layer Local Anesthetic: lidocaine 2% Amount of anesthesia used (mL): 6 Pre-repair: wound explored, irrigated extensively and deep structures intact Skin layer closed with: nylon Size (cm): 5-0 Number of sutures: 3 Technique: simple, interrupted Course Vital Signs: Vital signs: Vital Signs Pulse Rate 96 08/03/23 19:46 Respiratory Rate 18 08/03/23 19:46 Blood Pressure 126/84 08/03/23 19:46 MDM - Wound/Laceration Medical Decision Making Patient was made comfortable emergency room and his wound was extensively was irrigated with both Betadine and normal saline. Admitted wound aspiration due to for the patient was having severe pain. No obvious tendon laceration or vascular damage. Bleeding was controlled pressure. There was injected with lidocaine and sutures applied. Patient was put on a splint with pressure dressing. Given referral to see hand specialist for further evaluation and treatment. Patient was given pain medication and will be discharged home on pain medication with oral antibiotics. Differential Diagnosis Likely laceration, abscess, abrasion and avulsion of skin Lab Data Radiology Impressions Hand X-Ray 08/03/23 19:09 IMPRESSION: No acute findings. XR interpretation done by ED provider, pending radiology final review Discharge Plan Discharge Patient Disposition: Home Clinical Impression: Laceration Condition: Stable Prescriptions: New cephalexin 500 mg capsule 500 mg PO BID 10 Days Qty: 20 0RF tramadol 50 mg tablet 50 mg PO Q12H PRN (Reason: pain) Qty: 14 0RF No Action prednisone 20 mg tablet 20 mg PO DAILY 5 Days Qty: 5 0RF Naprosyn 500 mg tablet 500 mg PO BID PRN (Reason: pain) Qty: 20 0RF Discharge Orders: Discharge ED (Routine); Ordered 08/03/23 Ordered By: Gwen Cardoza Referrals: Sg Pond DO [Physician] - 4-7 days Discharge Diet: Advance as tolerated Discharge Activity: Resume usual activity Patient Instructions: Opioid Safety, Pain Management Coding Level of Care Code ED Floor Finisher Helper for Elizabeth Ignacio
--- NOTE | 2023-08-15 15:53 | W.ED.WOUNDLC ---
HPI - Wound/Laceration General: Chief Complaint: Wound/Laceration Stated Complaint: Cut Left Hand Time Seen by Provider: 08/03/23 19:04 Source: patient Mode of arrival: ambulatory Limitations: no limitations History of Present Illness: I was consulted by account liaison hospice Axel for recheck of wound prior to suture removal. Upon examination, the wound to palmar aspect (MCP region) of 2nd digit was fully healed. There was no redness, odor, or drainage present. Patient did complain of quite a bit of discomfort and it was noted he could not flex the index finger. There was diffuse digit edema. He states the antibiotics that were prescribed to him on initial visit were just filled two days ago. He states he was told to contact a hand surgeon 14 days after injury (?). I was able to access patient's chart and do not see where CM was placed or where patient was ever referred to one. OF NOTE-PATIENT DID NOT CHECK INTO THE ED AND THIS IS NOT A BILLABLE VISIT. IT WAS ENCOURAGED THAT PATIENT CHECK IN FOR FURTHER EVALUATION BUT HE STATES HE MUST GET BACK TO WORK. HE STATED HE WILL RETURN LATER. Review of Systems Musc: Reports: extremity pain (L hand) and extremity swelling (L index finger) Skin/Breast: Reports: other (healing laceration) Neuro: Denies: numbness in extremities [facility] ED PFSH: Medical History (Updated 08/11/23 @ 00:01 by MARION Farooq) No pertinent past medical history Psychiatric care Surgical History No pertinent past surgical history Social History Smoking and tobacco/nicotine status: current every day tobacco/nicotine user Alcohol intake: never Substance/Drug Use: never Physical Exam Extremity: COMMON NORMALS: capillary refill normal RIGHT UPPER EXTREMITY: Yes hand & digits OTHER: 2cm laceration overlying MCP joint on palmar aspect of L 2nd digit. Wound is fully healed and sutures were removed by RN. There is no redness, drainage, streaking, or odor present. Patient has diffuse swelling of L index finger. Digit is not held in flexion. He is not able to actively flex the digit and has significant tenderness with any type of active manipulation of the digit or MCP joint. Cap refill is normal. Sensation is normal. Course Vital Signs: Vital signs: Vital Signs Pulse Rate 96 08/03/23 19:46 Respiratory Rate 18 08/03/23 19:46 Blood Pressure 126/84 08/03/23 19:46 MDM - Wound/Laceration Medical Decision Making Again patient was not an active ED patient. I was just consulted by account liaison hospice to inspect wound prior to suture removal. Patient and I have concerns for a flexor tendon injury as patient is not able to flex his digit and possibly even an infectious tenosynovitis. Patient was encouraged to check into the emergency department although he declined stating he has to get back to work. Patient states there is no way he can follow up with hand surgery in [place] as he does not have transportation. I will go ahead and place a referral for patient to see Dr. Salcedo here in hopes that he might be able to assess/treat patient. Patient was made aware that Dr. Salcedo is on vacation this week it could be next week (or later before he is seen). We discussed consequences of an infectious tenosynovitis or untreated/delayed repair of a flexor tendon. Patient states he will try to come back to the ED later today. Lab Data Radiology Impressions Hand X-Ray 08/03/23 19:09 IMPRESSION: No acute findings. No radiology studies performed this visit Discharge Plan Discharge Patient Disposition: Home Clinical Impression: Laceration Condition: Stable Prescriptions: New tramadol 50 mg tablet 50 mg PO Q12H PRN (Reason: pain) Qty: 14 0RF No Action prednisone 20 mg tablet 20 mg PO DAILY 5 Days Qty: 5 0RF Naprosyn 500 mg tablet 500 mg PO BID PRN (Reason: pain) Qty: 20 0RF Discharge Orders: Discharge ED (Routine); Ordered 08/03/23 Ordered By: Gwen Cardoza Referrals: Sg Pond DO [Physician] - 4-7 days Discharge Diet: Advance as tolerated Discharge Activity: Resume usual activity Patient Instructions: Opioid Safety, Pain Management Coding Level of Care Code ED Senior Engineer for Elizabeth Ignacio
--- NOTE | 2023-08-15 15:59 | DCPLANNER ---
Message sent to [facility]o [facility]- Concern of index flexor -
== END 2023-08-03 21:28 | disposition home or self-care (01) ==
PROVIDERS: Emergency Provider Family Medicine
DX: S61.412A Laceration without foreign body of left hand, initial encounter (principal); W26.0XXA Contact with knife, initial encounter; Y93.G1 Activity, food preparation and clean up; F17.210 Nicotine dependence, cigarettes, uncomplicated
CPT/HCPCS: 12002; 73130; 99283

== ENCOUNTER 2024-02-20 01:28 | Emergency (ER) | payer SELFPAY ==
[2024-02-20 01:48] VITALS: BP 126/64; PULSE 78; RESP 18; TEMP 36.7; O2SAT 97; BMI 24.1
--- NOTE | 2024-02-20 01:52 | XRR_ITS ---
PROCEDURE INFORMATION: Exam: XR Left Ankle Exam date and time: 02/20/2024 1:55 AM Age: 28 years old Clinical indication: Injury or trauma; Fall; Other: Pain; Additional info: Fall pain TECHNIQUE: Imaging protocol: Radiologic exam of the left ankle. Views: 3 or more views. COMPARISON: No relevant prior studies available. FINDINGS: Bones/joints: Normal. Soft tissues: Normal. XR/XR ankle LT min 3V* [id number] IMPRESSION: No acute or aggressive osseous abnormality.
--- NOTE | 2024-02-20 02:12 | W.ED.EXTPRO ---
HPI - Extremity Problem General: Chief complaint: Extremity Injury, Lower Stated complaint: fall - left ankle injury Time Seen by Provider: 02/20/24 01:52 History of Present Illness: Presents to the ER with complaints of left ankle pain. He states he had on the side of the truck when he fell off the truck and the pain is primarily in the medial malleolus. He does state it hurts to walk. Review of Systems General: Reports: 10 or more systems reviewed and unremarkable except in HPI and below PFSH ED PFSH: Medical History Psychiatric care No pertinent past medical history Surgical History No pertinent past surgical history Social History Smoking and tobacco/nicotine status: current every day tobacco/nicotine user Alcohol intake: never Substance/Drug Use: never Physical Exam Const: COMMON NORMALS: no acute distress, average body habitus, patient oriented x3, no limitations, healthy appearing, alert and well nourished HENMT: COMMON NORMALS: normocephalic, atraumatic, hearing grossly normal bilaterally, external ears normal, Normal external nose present, moist oral mucous membranes and oropharynx normal HEAD & SCALP: normocephalic and atraumatic NOSE: Normal external nose present EXTERNAL EAR: Yes external ears normal Neck/C-Spine: COMMON NORMALS: no JVD Chest: COMMONS NORMALS: normal inspection of the chest and normal palpation of entire chest wall Resp: COMMON NORMALS: normal respiratory effort, No retractions, No use of accessory muscles and clear to auscultation bilaterally AUSCULTATION: clear to auscultation bilaterally Cardio: COMMON NORMALS: no JVD, regular rate, regular rhythm, S1 normal heart sound present, S2 normal heart sound present, No gallops present (Cardio), No clicks present (Cardio), No murmurs present (Cardio) and No rub (Cardio) RATE: regular rate RHYTHM: regular rhythm HEART SOUNDS: S1 normal heart sound present and S2 normal heart sound present GI: COMMON NORMALS: Normal to inspection, nondistended, normoactive bowel sounds present, Soft to palpation, non-tender, No hepatosplenomegaly present and no masses PALPATION: Yes Soft to palpation and Yes No hepatosplenomegaly present Neuro: COMMON NORMALS: patient oriented x3 SENSORIUM/ORIENTATION: Yes alert Course Vital Signs: Vital signs: Vital Signs Temperature 98.0 F 02/20/24 01:48 Pulse Rate 78 02/20/24 01:48 Respiratory Rate 18 02/20/24 01:48 Blood Pressure 126/64 02/20/24 01:48 Pulse Oximetry 97 02/20/24 01:48 Oxygen Delivery Me thod Room Air 02/20/24 01:48 MDM - Extremity (Nontraumatic) Medical Decision Making X-ray was shot of the left ankle preliminary read by myself is negative. Patient be discharged home to follow-up with his PCP within next 7 days for further evaluation and treatment. Differential Diagnosis Unlikely herpes zoster, gout, cellulitis, superficial thrombophlebitis, deep venous thrombosis of upper extremity, lower extremity edema or deep vein thrombosis of lower extremity Medical Records I reviewed the patient's medical records. Lab Data I reviewed the patient's lab results. All radiology interpretation(s) finalized by discharge Discharge Plan Discharge Patient Disposition: Home Clinical Impression: Contusion of ankle or foot, left Condition: Stable Prescriptions: No Action citalopram [Celexa] 20 mg tablet 20 mg PO DAILY Qty: 30 1RF naltrexone 50 mg tablet 50 mg PO DAILY Qty: 30 1RF Discharge Orders: Discharge ED (Routine); Ordered 02/20/24 Ordered By: Santi Ly Patient Instructions: Contusion in Adults (ED) Activity Restrictions/Additional Instructions: Your x-ray in ER was preliminary read is negative for fracture. It will be read by radiologist and if they see anything there we will change your diagnosis we will call you with the results. Otherwise please limit walking on it for the next couple days and follow-up with your family practice physician within next 7 days for further evaluation and treatment as needed. Coding Level of Care Code ED Sales And Marketing Associate for Elizabeth Ignacio
== END 2024-02-20 02:20 | disposition home or self-care (01) ==
PROVIDERS: Emergency Provider Emergency Medicine
DX: S90.02XA Contusion of left ankle, initial encounter (principal); Z72.0 Tobacco use; W17.89XA Other fall from one level to another, initial encounter
CPT/HCPCS: 73610; 99283

== ENCOUNTER 2024-06-18 18:16 | Emergency (ER) | payer SELFPAY ==
[2024-06-18 18:33] VITALS: BP 128/74; PULSE 89; RESP 16; TEMP 36.7; O2SAT 100
[2024-06-18] MEDS: ketorolac 60 mg/2 mL INJ IM (19:07)
[2024-06-18] MEDS: orphenadrine 30 mg/mL Inj 2 mL 60 MG IM (19:07)
[2024-06-18 19:11] VITALS: BP 119/74; PULSE 82; O2SAT 99
[2024-06-18 19:34] VITALS: BP 118/78; PULSE 88; RESP 18; O2SAT 97
--- NOTE | 2024-06-18 19:44 | W.ED.NECK ---
HPI - Neck Pain/Injury General: Chief Complaint: Neck Pain/Injury Stated Complaint: Knot on Back of Head Time Seen by Provider: 06/18/24 18:40 Source: patient Mode of arrival: ambulatory Limitations: no limitations History of Present Illness: Patient is a 28-year-old male who presents emergency department complaining of knot on the back of his neck that he states he noticed 3 days ago. Also reporting pain with range of motion of his neck. No injury reported. Has not taken anything for pain. No history of neck surgery. No fever, neurological complaints, or other symptoms reported at this time. Vitals normal on arrival. MD complaint: neck pain and other (Knot on back of neck) Onset (ago): day(s) Exacerbating factors: movement of neck Associated symptoms: Denies headache(s) or nausea Related Data Home Medications Medication Instructions Recorded Confirmed chlordiazepoxide HCl 10 mg capsule 10 mg PO BID PRN 05/08/24 05/08/24 Previous Rx's Medication Instructions Recorded citalopram 20 mg tablet (Celexa) 20 mg PO DAILY #30 tabs 12/07/23 naltrexone 50 mg tablet 50 mg PO DAILY #30 tabs 12/07/23 amoxicillin 875 mg-potassium 1 tab PO BID 7 days #14 tabs 05/08/24 clavulanate 125 mg tablet methocarbamol 750 mg tablet 750 mg PO Q8H 5 days #15 tabs 06/18/24 Allergies Allergy/AdvReac Type Severity Reaction Status Date / Time venom-honey bee Allergy Severe facial Verified 06/18/24 18:36 swelling blackberries Allergy Severe facial Uncoded 06/18/24 18:36 swelling Review of Systems General: Reports: 10 or more systems reviewed and unremarkable except in HPI and below Const: Denies: fever(s) or chills Card: Denies: chest pain Resp: Denies: dyspnea or productive cough GI: Denies: abdominal pain, nausea, vomiting or diarrhea : Denies: flank pain Musc: Reports: neck pain; Denies: back pain, extremity pain, extremity swelling, joint pain, joint swelling, joint redness, joint warmth, limited range of motion or muscle weakness Skin/Breast: Denies: rash Neuro: Denies: headache(s), numbness in extremities or weakness in extremities PFS ED PFSH: Medical History Psychiatric care No pertinent past medical history Surgical History No pertinent past surgical history Social History Smoking and tobacco/nicotine status: current every day tobacco/nicotine user Alcohol intake: never Substance/Drug Use: never Physical Exam Const: COMMON NORMALS: no acute distress, patient oriented x3, no limitations, healthy appearing, alert and well nourished HENMT: COMMON NORMALS: normocephalic and atraumatic HEAD & SCALP: normocephalic and atraumatic Neck/C-Spine: COMMON NORMALS: full ROM, supple and no meningeal signs OTHER: No palpable deformity, the knot in question is the patient's C7. No spinous process tenderness to palpation. Pain noted with lateral rotation of the neck. Resp: COMMON NORMALS: normal respiratory effort, No use of accessory muscles and clear to auscultation bilaterally AUSCULTATION: clear to auscultation bilaterally Cardio: COMMON NORMALS: regular rate and regular rhythm RATE: regular rate RHYTHM: regular rhythm Extremity: COMMON NORMALS: normal to inspection, full ROM, capillary refill normal, no joint enlargement and no clubbing, cyanosis or edema Neuro: COMMON NORMALS: patient oriented x3, moves all extremities, no focal motor deficits and no sensory deficits noted SENSORIUM/ORIENTATION: Yes alert MENINGEAL SIGNS: Yes no meningeal signs Skin: COMMON NORMALS: no rashes or lesions noted GENERAL SKIN EXAM: no rashes or lesions noted Course Vital Signs: Vital signs: Vital Signs Temperature 98.1 F 06/18/24 18:33 Pulse Rate 88 06/18/24 19:34 Respiratory Rate 18 06/18/24 19:34 Blood Pressure 118/78 06/18/24 19:34 Pulse Oximetry 97 06/18/24 19:34 Oxygen Delivery Me thod Room Air 06/18/24 19:11 MDM - Neck Pain/Injury Medical Decision Making Patient presents with atraumatic neck pain, also knot on his neck that is later revealed to be just a C7. Did give him muscle relaxer here as well as Toradol in the emergency department, upon recheck states he does feel little better. I do think that the pain is related to a muscle spasm, will send in muscle relaxers. No trauma reported so no need for x-ray at this time. He had no other symptoms. Patient discharged home. No radiology studies performed this visit Discharge Plan Discharge Patient Disposition: Home Clinical Impression: Strain of neck muscle Condition: Stable Prescriptions: New methocarbamol 750 mg tablet 750 mg PO Q8H 5 Days Qty: 15 0RF No Action citalopram [Celexa] 20 mg tablet 20 mg PO DAILY Qty: 30 1RF naltrexone 50 mg tablet 50 mg PO DAILY Qty: 30 1RF chlordiazepoxide HCl 10 mg capsule 10 mg PO BID PRN amoxicillin-pot clavulanate 875-125 mg tablet 1 tab PO BID 7 Days Qty: 14 0RF Discharge Orders: Discharge ED (Routine); Ordered 06/18/24 Ordered By: Tony Sommers Discharge Diet: Usual diet Discharge Activity: Increase activity as tolerated Patient Instructions: Cervical Strain (ED) Activity Restrictions/Additional Instructions: Muscle relaxers. Apply heat to the back your neck for added relief. Gentle range of motion exercises as tolerated. Follow-up with primary care as needed. Coding Level of Care Code ED Racebook Writer for Elizabeth Ignacio
== END 2024-06-18 19:35 | disposition home or self-care (01) ==
PROVIDERS: Emergency Provider Physician Assistant
DX: S16.1XXA Strain of muscle, fascia and tendon at neck level, initial encounter (principal); Z72.0 Tobacco use; X58.XXXA Exposure to other specified factors, initial encounter
CPT/HCPCS: 96372; 99284; J1885; J2360

== ENCOUNTER 2024-06-21 15:09 | Outpatient (CLI) | payer SELFPAY ==
--- NOTE | 2024-06-21 15:18 | XR_ITS ---
WS: [id number] Exam: XR cervical spine 3V* [id number] Date/Time of Exam: 06/21/2024 3:20 PM Reason For Exam: neck pain Comparison 04/30/2010. No fracture or dislocation. Disc spaces are preserved. Posterior elements are intact. Normal paraspin al soft tissues. XR/XR cervical spine 3V* [id number] IMPRESSION: 1. Negative C-spine study.
== END 2024-06-21 15:10 | disposition home or self-care (01) ==
LOC: RAD 15:10
PROVIDERS: Visit Provider Emergency Medicine
DX: M54.2 Cervicalgia (principal)
CPT/HCPCS: 72040

== ENCOUNTER 2024-10-08 00:16 | Emergency (ER) | payer BC, MEDICAID, SELFPAY ==
[2024-10-08 00:46] VITALS: BP 139/80; PULSE 62; RESP 14; TEMP 36.6; O2SAT 97
--- NOTE | 2024-10-08 00:59 | W.ED.URI ---
HPI - URI/Sore Throat General: Chief Complaint: Upper Respiratory Infection Stated Complaint: Sinus Infection Time Seen by Provider: 10/08/24 00:52 History of Present Illness: 28-year-old man presents emergency room with sinus pressure and headache. Congestion. This been going on for couple days now. Related Data Home Medications Medication Instructions Recorded Confirmed chlordiazepoxide HCl 10 mg capsule 10 mg PO BID PRN 05/08/24 06/21/24 Previous Rx's Medication Instructions Recorded citalopram 20 mg tablet (Celexa) 20 mg PO DAILY #30 tabs 12/07/23 naltrexone 50 mg tablet 50 mg PO DAILY #30 tabs 12/07/23 ibuprofen 600 mg tablet 600 mg PO Q8H PRN pain #30 tabs 06/21/24 prednisone 20 mg tablet 60 mg (3 x 20 mg) PO DAILY 5 days 06/21/24 #15 tabs amoxicillin 875 mg-potassium 1 tab PO BID 10 days #20 tabs 10/08/24 clavulanate 125 mg tablet dexamethasone 6 mg tablet 6 mg PO DAILY 5 days #5 tabs 10/08/24 Allergies Allergy/AdvReac Type Severity Reaction Status Date / Time venom-honey bee Allergy Severe facial Verified 10/08/24 00:49 swelling blackberry Allergy Unknown facial Verified 10/08/24 00:49 swelling Review of Systems Narrative: Constitutional symptoms: Negative except as documented in HPI. Skin symptoms: Negative except as documented in HPI. Eye symptoms: Negative except as documented in HPI. ENMT symptoms: Negative except as documented in HPI. Respiratory symptoms: Negative except as documented in HPI. Cardiovascular symptoms: Negative except as documented in HPI. Gastrointestinal symptoms: Negative except as documented in HPI. Genitourinary symptoms: Negative except as documented in HPI. Musculoskeletal symptoms: Negative except as documented in HPI. Neurologic symptoms: Negative except as documented in HPI. Psychiatric symptoms: Negative except as documented in HPI. Endocrine symptoms: Negative except as documented in HPI. PFSH ED PFSH: Medical History Psychiatric care No pertinent past medical history Surgical History No pertinent past surgical history Social History Smoking and tobacco/nicotine status: current every day tobacco/nicotine user Alcohol intake: never Substance/Drug Use: never Physical Exam Narrative: EXAM NARRATIVE: General: Alert, no acute distress. Skin: warm and dry Head: Normocephalic Neck: Trachea midline Eye: Extraocular movements are intact. Ears, nose, mouth and throat: Oral mucosa moist Respiratory: Respirations are non-labored Musculoskeletal: Normal ROM Neurological: Alert and oriented, No focal neurological deficit observed. Psychiatric: Cooperative, appropriate mood & affect. Course Vital Signs: Vital signs: Vital Signs Temperature 97.8 F 10/08/24 00:46 Pulse Rate 62 10/08/24 00:46 Respiratory Rate 14 10/08/24 00:46 Blood Pressure 139/80 10/08/24 00:46 Pulse Oximetry 97 10/08/24 00:46 Oxygen Delivery Me thod Room Air 10/08/24 00:46 MDM - URI/Sore Throat Medical Decision Making Assessment and plan: Sinusitis ?IM Decadron and first dose of Augmentin here in the emergency room - Discharged home - Discussed plan with patient. Answered any questions. - Evaluation and treatment of this problem were appropriate in the emergency setting. No radiology studies performed this visit Discharge Plan Discharge Patient Disposition: Home Clinical Impression: Sinusitis, acute Condition: Stable Prescriptions: New dexamethasone 6 mg tablet 6 mg PO DAILY 5 Days Qty: 5 0RF amoxicillin-pot clavulanate 875-125 mg tablet 1 tab PO BID 10 Days Qty: 20 0RF No Action citalopram [Celexa] 20 mg tablet 20 mg PO DAILY Qty: 30 1RF naltrexone 50 mg tablet 50 mg PO DAILY Qty: 30 1RF chlordiazepoxide HCl 10 mg capsule 10 mg PO BID PRN prednisone 20 mg tablet 60 mg PO DAILY 5 Days Qty: 15 0RF ibuprofen 600 mg tablet 600 mg PO Q8H PRN (Reason: pain) Qty: 30 0RF Discharge Orders: Discharge ED (Routine); Ordered 10/08/24 Ordered By: Alessia Santana Discharge Diet: Usual diet Discharge Activity: Increase activity as tolerated Patient Instructions: Sinusitis (ED), Opioid Safety, Pain Management Activity Restrictions/Additional Instructions: Thank you for choosing [facility] for your healthcare needs today. Please realize this is an emergency room and that we are providing you with a medical screening exam and this may not be complete and all inclusive of all the testing and or work up that you may need to determine your ailment or severity of your illness. You have been screened and evaluated and felt safe for discharge. Health conditions do change or evolve sometimes and as such it is important that you follow up with your Primary Doctor to be re checked, 3-5 days is a general good time frame for follow up. You are always welcome to return to the ED for re assessment if your symptoms are worsening or you have new concerns Coding Level of Care Code ED Section Plotter Operator for Elizabeth Ignacio
[2024-10-08] MEDS: dexamethasone 10 mg/mL INJ IM (01:17)
--- NOTE | 2024-10-08 01:17 | PC.NURSE ---
antibiotic was not given d/t pyxis drawer not opening
[2024-10-08 01:20] VITALS: BP 131/81; PULSE 67; RESP 14; O2SAT 98
== END 2024-10-08 01:21 | disposition home or self-care (01) ==
PROVIDERS: Emergency Provider Emergency Medicine
DX: J01.90 Acute sinusitis, unspecified (principal); Z72.0 Tobacco use
CPT/HCPCS: 96372; 99284; J1100

== ENCOUNTER 2025-07-14 18:47 | Emergency (ER) | payer MEDICAID, SELFPAY ==
[2025-07-14 18:55] VITALS: BP 103/65; PULSE 110; RESP 22; O2SAT 98
--- NOTE | 2025-07-14 19:41 | W.ED.WOUNDLC ---
HPI - Wound/Laceration General: Chief Complaint: Wound/Laceration Stated Complaint: Left Leg Cut with Chain Saw Time Seen by Provider: 07/14/25 19:37 Source: patient Mode of arrival: ambulatory Limitations: no limitations History of Present Illness: 29-year-old male states he was using a chainsaw and it kicked back hitting him in the left anterior thigh has had a laceration to the thigh happened just prior to arrival he rates his pain a 4 out of 10 he has no bleeding at this time denies any other injuries Related Data Home Medications ?Medication ?Instructions ?Recorded ?Confirmed chlordiazepoxide HCl 10 mg capsule 10 mg PO BID PRN 05/08/24 04/12/25 Previous Rx's ?Medication ?Instructions ?Recorded citalopram 20 mg tablet (Celexa) 20 mg PO DAILY #30 tabs 12/07/23 naltrexone 50 mg tablet 50 mg PO DAILY #30 tabs 12/07/23 ibuprofen 600 mg tablet 600 mg PO Q8H PRN pain #30 tabs 06/21/24 clobetasol 0.05 % topical cream 1 applic topical BID 2 weeks #30 04/04/25 grams epinephrine 0.3 mg/0.3 mL 0.3 mg (0.3 mL) IM Q10M PRN 04/12/25 injection, auto-injector (EpiPen anaphylaxis #2 ea 2-Gerardo) amoxicillin 500 mg-potassium 1 tab PO BID #14 tabs 07/14/25 clavulanate 125 mg tablet (Augmentin) Allergies Allergy/AdvReac Type Severity Reaction Status Date / Time venom-honey bee Allergy Severe facial Verified 04/12/25 14:46 swelling blackberry Allergy Unknown facial Verified 04/12/25 14:46 swelling Review of Systems Musc: Reports: extremity pain PFS ED PFSH: Medical History No pertinent past medical history Surgical History No pertinent past surgical history Social History Smoking and tobacco/nicotine status: never used tobacco/nicotine Alcohol intake: never Substance/Drug Use: never Physical Exam Const: COMMON NORMALS: no acute distress, patient oriented x3 and healthy appearing HENMT: COMMON NORMALS: normocephalic and atraumatic HEAD & SCALP: normocephalic and atraumatic Eye: COMMON NORMALS: conjunctivae normal CONJUNCTIVA: Yes conjunctivae normal Neck/C-Spine: COMMON NORMALS: full ROM and supple Chest: COMMONS NORMALS: normal inspection of the chest Resp: COMMON NORMALS: normal respiratory effort Cardio: COMMON NORMALS: regular rate RATE: regular rate Extremity: COMMON NORMALS: full ROM NARRATIVE EXTREMITY EXAM: 6 cm laceration noted to left anterior thigh deep structures intact no bleeding Neuro: COMMON NORMALS: patient oriented x3, moves all extremities and no focal motor deficits Psych: COMMON NORMALS: mental status grossly normal, Normal thought process present and cooperative THOUGHT PROCESS: Normal thought process present Skin: COMMON NORMALS: no rashes or lesions noted GENERAL SKIN EXAM: no rashes or lesions noted Procedures Laceration Laceration 1: Site: lower extremity Side (If applicable): left Size (cm): 6 Description: irregular and clean Depth: simple, single layer Local Anesthetic: lidocaine 1% Amount of anesthesia used (mL): 15 Pre-repair: wound explored, irrigated extensively and deep structures intact Skin layer closed with: nylon Size (cm): 3-0 Number of sutures: 6 Technique: simple, interrupted Course Vital Signs: Vital signs: Vital Signs Pulse Rate 110 H 07/14/25 18:55 Respiratory Rate 22 H 07/14/25 18:55 Blood Pressure 103/65 07/14/25 18:55 Pulse Oximetry 98 07/14/25 18:55 Oxygen Delivery Me thod Room Air 07/14/25 18:55 MDM - Wound/Laceration Medical Decision Making 29-year-old male who presents here with a laceration to his left leg did numb the laceration extensively washed it out with saline. Did place 6 sutures given that IM Rocephin will place him on Augmentin as well to prevent infection he is to have sutures removed in 2 weeks informed him to return if he has any signs of infection he understands agrees to plan Medical Records I reviewed the patient's medical records. No radiology studies performed this visit Discharge Plan Discharge Patient Disposition: Home Clinical Impression: Laceration Condition: Stable Prescriptions: New amoxicillin-pot clavulanate [Augmentin] 500-125 mg tablet 1 tab PO BID Qty: 14 0RF No Action citalopram [Celexa] 20 mg tablet 20 mg PO DAILY Qty: 30 1RF naltrexone 50 mg tablet 50 mg PO DAILY Qty: 30 1RF chlordiazepoxide HCl 10 mg capsule 10 mg PO BID PRN ibuprofen 600 mg tablet 600 mg PO Q8H PRN (Reason: pain) Qty: 30 0RF clobetasol 0.05 % cream 1 applic topical BID 14 Days Qty: 30 0RF Rx Instructions: do not apply to face or genitalia epinephrine [EpiPen 2-Gerardo] 0.3 mg/0.3 mL auto-injector 0.3 mg IM Q10M PRN (Reason: anaphylaxis) Qty: 2 0RF Rx Instructions: for 2 doses Discharge Orders: Discharge ED (Routine); Ordered 07/14/25 Ordered By: Yaneli Carson Discharge Diet: Advance as tolerated Discharge Activity: Resume usual activity Patient Instructions: Care For Your Stitches (ED), Laceration (ED) Print Language: Armenian Coding Level of Care Code ED Emergency Care Attendant for Elizabeth Ignacio
[2025-07-14] MEDS: HYDROcodone-acetaminophen 5-325 mg Tablet 1 TAB PO (19:49)
[2025-07-14] MEDS: cefTRIAXone 1,000 MG in water for injection-sterile 2.1 ML 2.1 MG IM (19:49)
== END 2025-07-14 20:14 | disposition home or self-care (01) ==
PROVIDERS: Emergency Provider Emergency Medicine
DX: S71.112A Laceration without foreign body, left thigh, initial encounter (principal); W29.3XXA Contact with powered garden and outdoor hand tools and machinery, initial encounter
CPT/HCPCS: 12002; 96372; 99284; 99291; J0696; J9999